=== PATIENT | female | born 1955 | race Caucasian/White ===

== ENCOUNTER 2018-03-31 18:06 | Emergency (ER) | payer BC ==
[2018-03-31 19:41] LABS: BASO % 0.7 % (0-6); EOS % 0.7 % (0-6); GRAN % 57.6 % (47-80); HEMATOCRIT 40.4 % (35.0-47.0); HEMOGLOBIN 14.1 gm/dl (11.6-16.0); LYMPH % 32.3 % (16-45); MEAN CELL VOLUME 86.3 fl (81-97); MEAN CORPUSCULAR HEMOGLOBIN 30.1 pg (27-33); MEAN CORPUSCULAR HGB CONC 34.9 g/dl (32-36); MEAN PLATELET VOLUME 9.4 fl (7.4-10.4); MONO % 8.7 % (0-9); PLATELET COUNT 298 K/uL (130-400); RED BLOOD COUNT 4.68 M/uL (3.80-5.40); RED CELL DISTRIBUTION WIDTH 12.1 % (11.5-14.5); WHITE BLOOD COUNT W/O DIFF 6.7 K/uL (4.2-12.2)
--- NOTE | 2018-03-31 19:50 | Emergency Department Record ---
History of Present Illness - General Chief Complaint: Numbness Stated Complaint: NUMBNESS ON RT SIDE OF FACE Time Seen by Provider: 03/31/18 18:58 Source: Patient Mode of Arrival: Ambulatory Limitations: No limitations - History of Present Illness Initial Comments: pt has been having numbness in the right side of her face for a few weeks that has now extended to her r arm and r leg. she has no weaknes. she has no other symptoms. she saw her family doctor this week and an mri is scheduled for 4 days. she decided she couldnt wait that long and came in here for evaluation -: Week(s) Location: Right arm, Right face, Right leg History of same: No Severity: Mild Quality: Tingling Improves With: None Worsens With: None On Anticoagulants: No Associated Symptoms: Denies other symptoms - Richi Coma Scale Eye Response: (4) Open spontaneously Motor Response: (6) Obeys commands Verbal Response: (5) Oriented Richi Total: 15 - Symptoms of Stroke Symptoms of stroke: Numbness - Related Data Home Medications: Home Medications Medication Instructions Recorded Confirmed Last Taken Fluticasone Furoate [Flonase 9.9 ml NS DAILY 03/31/18 03/31/18 03/31/18 Sensimist] Lisinopril/Hydrochlorothiazide 2 tab PO DAILY 03/31/18 03/31/18 03/31/18 [Lisinopril-Hctz 20-12.5 mg Tab] Allergies/Adverse Reactions: Allergies Allergy/AdvReac Type Severity Reaction Status Date / Time NO KNOWN DRUG ALLERGY Allergy PT UNSURE Uncoded 03/31/18 18:20 OF REACTION Travel Screening - Travel/Exposure Within Last 30 Days Have you traveled within the last 30 days?: No - Travel/Exposure Within Last Year Have you traveled outside the [place] in the last year?: No - Additonal Travel Details Have you been exposed to anyone with a communicable illness?: No Review of Systems Reviewed: No additional complaints except as noted below Constitutional: Reports: As per HPI. Denies: Chills, Fever, Malaise, Night sweats, Weakness, Weight change Eyes: Reports: As per HPI. Denies: Eye discharge, Eye pain, Photophobia, Vision change ENT: Reports: As per HPI. Denies: Congestion, Dental pain, Ear pain, Epistaxis , Hearing loss, Throat pain Respiratory: Reports: As per HPI. Denies: Cough, Dyspnea, Hemoptysis, Stridor, Wheezes Cardiovascular: Reports: As per HPI. Denies: Arrhythmia, Chest pain, Dyspnea on exertion, Edema, Murmurs, Orthopnea, Palpitations, Paroxysmal nocturnal dyspnea, Rheumatic Fever, Syncope Endocrine: Reports: As per HPI. Denies: Fatigue, Heat or cold intolerance, Polydipsia, Polyuria Gastrointestinal: Reports: As per HPI. Denies: Abdominal pain, Constipation, Diarrhea, Hematemesis, Hematochezia, Melena, Nausea, Vomiting Genitourinary: Reports: As per HPI. Denies: Abnormal menses, Discharge, Dyspareunia, Dysuria, Frequency, Hematuria, Incontinence, Retention, Urgency Musculoskeletal: Reports: As per HPI. Denies: Arthralgia, Back pain, Gout, Joint swelling, Myalgia, Neck pain Skin: Reports: As per HPI. Denies: Bruising, Change in color, Change in hair/ nails, Lesions, Pruritus, Rash Neurological: Reports: As per HPI, Numbness, Tingling. Denies: Abnormal gait, Confusion, Headache, Paresthesias, Seizure, Tremors, Vertigo, Weakness Psychiatric: Reports: As per HPI. Denies: Anxiety, Auditory hallucinations, Depression, Homicidal thoughts, Suicidal thoughts, Visual hallucinations Hematological/Lymphatic: Reports: As per HPI. Denies: Anemia, Blood Clots, Easy bleeding, Easy bruising, Swollen glands Past Medical History - SOCIAL HISTORY Smoking Status: Former smoker Alcohol Use: Occasional Drug Use: None - RESPIRATORY Hx Respiratory Disorders: No - CARDIOVASCULAR Hx Cardio Disorders: Yes Hx Hypertension: Yes - NEURO Hx Neuro Disorders: Yes Hx Headaches: Yes - GI Hx GI Disorders: Yes Hx Hepatitis/Jaundice: Yes (hep c - took meds series) - Hx Genitourinary Disorders: No - ENDOCRINE Hx Endocrine Disorders: No - MUSCULOSKELETAL Hx Musculoskeletal Disorders: Yes Hx Arthritis: Yes - PSYCH Hx Psych Problems: Yes Hx Anxiety: Yes - HEMATOLOGY/ONCOLOGY Hx Hematology/Oncology Disorders: No Family Medical History Any Significant Family History?: Yes Hx Cancer: Father *Cancer Comment: father lung CA Hx Heart Disease: Father Physical Exam - General General Appearance: Alert, Oriented x3, Cooperative, Mild distress - Head Head exam: Normal inspection - Eye Eye exam: Normal appearance, PERRL, EOMI Pupils: Normal accommodation - ENT ENT exam: Normal exam, Mucous membranes moist, Normal external ear exam, Normal orophraynx Ear exam: Normal external inspection. negative: External canal tenderness Nasal Exam: Normal inspection. negative: Discharge, Sinus tenderness Mouth exam: Normal external inspection, Tongue normal Teeth exam: Normal inspection. negative: Dental caries Throat exam: Normal inspection. negative: Tonsillar erythema, Tonsillar exudate - Neck Neck exam: Normal inspection, Full ROM. negative: Tenderness - Respiratory Respiratory exam: Normal lung sounds bilaterally. negative: Respiratory distress - Cardiovascular Cardiovascular Exam: Regular rate, Normal rhythm, Normal heart sounds - GI/Abdominal GI/Abdominal exam: Soft, Normal bowel sounds. negative: Tenderness - Rectal Rectal exam: Deferred - exam: Deferred - Extremities Extremities exam: Normal inspection, Full ROM, Normal capillary refill. negative: Tenderness - Back Back exam: Reports: Normal inspection, Full ROM. Denies: Muscle spasm, Rash noted, Tenderness - Neurological Neurological exam: Alert, CN II-XII intact, Normal gait, Oriented X3, Other ( subjective tingling in face and r leg) - Psychiatric Psychiatric exam: Normal affect, Normal mood - Skin Skin exam: Dry, Intact, Normal color, Warm Course Vital Signs 03/31/18 18:28 Temperature 98.9 F Pulse Rate 71 Respiratory 18 Rate Blood Pressure 178/111 Pulse Ox 97 - Reevaluation(s) Reevaluation #1: 03/31/18 20:56 ct is neg. since symptoms having been going on for more then a week it is unlikely to be a stroke but mri is still recommended. it is not bells palsy as there is no facial drooping and there is tingling in rue and rle. pt thinks she is feeling better since taking the potassium Medical Decision Making - Lab Data Result diagrams: 03/31/18 19:35 03/31/18 19:35 Lab Results 03/31/18 Range/Units 19:35 WBC 6.7 (4.2-12.2) K/uL RBC 4.68 (3.80-5.40) M/uL Hgb 14.1 (11.6-16.0) gm/dl Hct 40.4 (35.0-47.0) % MCV 86.3 (81-97) fl MCH 30.1 (27-33) pg MCHC 34.9 (32-36) g/dl RDW 12.1 (11.5-14.5) % Plt Count 298 (130-400) K/uL MPV 9.4 (7.4-10.4) fl Gran % 57.6 (47-80) % Lymphocytes % 32.3 (16-45) % Monocytes % 8.7 (0-9) % Eosinophils % 0.7 (0-6) % Basophils % 0.7 (0-6) % Disposition Disposition: Discharge Clinical Impression: Tingling of face, Tingling in extremities, Hypokalemia, Hyponatremia Disposition: Home, Self-Care Condition: (1) Good Instructions: Hypokalemia (ED), Hyponatremia (ED), Paresthesia (ED) Additional Instructions: follow up with family doctor on monday. return sooner if worse. have mri on monday Forms: Patient Portal Access Quality - Quality Measures Quality Measures: N/A - Blood Pressure Screening Does Patient Have Any of the Following: Active Dx of HTN Blood Pressure Classification: Hypertensive Reading Systolic Measurement: 178 Diastolic Measurement: 111 Screening for High Blood Pressure: Patient Exclusion, Hx of HTN [[id number]]
[2018-03-31 19:53] LABS: BLOOD UREA NITROGEN 9 mg/dL (8-23); CREATININE 0.5 mg/dL (0.5-0.9); EST GLOMERULAR FILTRATION RATE > 60 mL/min
[2018-03-31 19:56] LABS: GLUCOSE,RANDOM 115 mg/dL (74-109)
[2018-03-31] MEDS: SOD CHLOR 0.9% WITH KCL 40MEQ 40 MEQ/1,000 ML IV.SOLN IV ONE (20:19)
[2018-03-31] MEDS: POTASSIUM CHLORIDE 20 MEQ TABLET PO ONE (20:19)
--- NOTE | 2018-04-04 09:14 | CT SCAN REPORT ---
EXAM: EMERGENCY HEAD CT WITHOUT CONTRAST HISTORY: RIGHT SIDED NUMBNESS, FRONTAL HEADACHE, FRONTAL PRESSURE, BLURRY WORSENING VISION FOR TWO WEEKS. TECHNIQUE: Axial CT scan of the head was performed without IV contrast. Comparison: Head CT 04/10/10. FINDINGS: No definite acute intracranial hemorrhage identified. No focal mass effect or midline shift apparent. No definite acute infarct is seen and no definite intracranial mass lesion identified. If the patient's neurologic symptoms persist, follow-up brain MRI may be useful for further evaluation if not contraindicated. IMPRESSION: EMERGENCY NONCONTRAST HEAD CT APPEARS NEGATIVE WITH NO DEFINITE ACUTE INTRACRANIAL HEMORRHAGE OR FOCAL MASS EFFECT IDENTIFIED. JOB NUMBER: [id number] MTDD
== END 2018-03-31 21:22 | disposition home or self-care (01) ==
LOC: ER 18:06
DX: E87.6 Hypokalemia (principal); E87.1 Hypo-osmolality and hyponatremia; R20.2 Paresthesia of skin; I10 Essential (primary) hypertension; Z87.891 Personal history of nicotine dependence
CPT/HCPCS: 70450; 80048; 85025; 93005; 93010; 96365; 99284